=== PATIENT | female | born 1965 | race Caucasian/White ===

== ENCOUNTER 2020-05-18 12:59 | Inpatient (IN) | payer MEDICAID, SELFPAY ==
[~2020-05-18] VITALS: Ht 160 cm; Wt 68.5 kg
[2020-05-18 13:03] VITALS: BP 178/81
--- NOTE | 2020-05-18 13:03 | NUR ---
SHAMEKA Paredes takes pt to bedside for assessment.
[2020-05-18] MEDS ORDERED: NACL 0.9% 1,000 ML IV ONE ×2 (13:10→15:05)
--- NOTE | 2020-05-18 13:14 | NUR ---
55 y/o female A&OX4 c/o chest pain 10. Pt states high blood sugar reading obtained at home, subjective. Pt appears anxious. is at the bedside for complete assessment. PMH: DM RX: Unknown NKA
--- NOTE | 2020-05-18 13:20 | NUR ---
20G IV placed to left AC, blood drawn at this time.
--- NOTE | 2020-05-18 13:28 | NUR ---
XR at the pt bedside at this time.
[2020-05-18 13:42] LABS: BASOPHILS # (AUTO) 0.1 K/uL (0.00-0.22); BASOPHILS % (AUTO) 0.8 % (0.0-2.0); EOSINOPHILS # (AUTO) 0.1 K/uL (0-0.4); EOSINOPHILS % (AUTO) 1.4 % (0.0-4.0); HEMATOCRIT 45.7 % (36-48); HEMOGLOBIN 15.4 g/dL (12.0-16.0); LYMPHOCYTES # (AUTO) 1.5 K/uL (2.5-16.5); LYMPHOCYTES % (AUTO) 22.7 % (20.5-51.1); MEAN CORPUSCULAR HEMOGLOBIN 30 pg (27-31); MEAN CORPUSCULAR HGB CONC 34 g/dL (33-37); MEAN CORPUSCULAR VOLUME 89.4 fL (80-94); MONOCYTES # (AUTO) 0.6 K/uL (0.8-1.0); MONOCYTES % (AUTO) 9.8 % (1.7-9.3); NEUTROPHILS # (AUTO) 4.2 K/uL (1.8-7.7); NEUTROPHILS % (AUTO) 65.3 % (42.2-75.2); PLATELET COUNT (AUTO) 256 K/uL (140-450); RED BLOOD CELL COUNT(AUTO) 5.11 MIL/uL (4.20-5.40); RED CELL DISTRIBUTION WIDTH 13.7 % (11.6-13.7); WHITE BLOOD COUNT (AUTO) 6.4 K/uL (4.8-10.8)
[2020-05-18 13:49] LABS: ANION GAP 26.3 (8-16); CARBON DIOXIDE 15.3 mmol/L (21-32); CREATININE 0.8 mg/dL (0.6-1.3); POTASSIUM 3.6 mmol/L (3.5-5.1)
--- NOTE | 2020-05-18 14:31 | NUR ---
Pt sleeping, VSS, will continue to monitor.
--- NOTE | 2020-05-18 15:49 | NUR ---
Pt repositioned for comfort, NS bolus remains running. IV site intact. VSS. Will continue to monitor
[2020-05-18] MEDS ORDERED: LACTATED RINGERS 1,000 ML IV ONE (16:35)
[2020-05-18] MEDS ORDERED: ASPIRIN 81 MG TAB.CHEW PO ONE (16:35)
--- NOTE | 2020-05-18 16:44 | NUR ---
Lab at bedside for blood draw
[2020-05-18 16:48] LABS: ANION GAP 20.3 (8-16); CARBON DIOXIDE 18.8 mmol/L (21-32); CREATININE 0.7 mg/dL (0.6-1.3); POTASSIUM 4.1 mmol/L (3.5-5.1)
[2020-05-18 17:11] LABS: ANION GAP 19.7 (8-16); CARBON DIOXIDE 20.1 mmol/L (21-32); CREATININE 0.6 mg/dL (0.6-1.3); POTASSIUM 3.8 mmol/L (3.5-5.1)
--- NOTE | 2020-05-18 17:20 | NUR ---
Pt ambulated to bathroom for UA collection.
[2020-05-18] MEDS ORDERED: ENAL5TAB34 PO (17:24)
[2020-05-18] MEDS ORDERED: METF500T PO (17:24)
[2020-05-18] MEDS ORDERED: TURM500C7 PO (17:24)
[2020-05-18] MEDS ORDERED: GLIM2TAB PO (17:24)
--- NOTE | 2020-05-18 17:55 | NUR ---
Richelle swab collected and walked to lab.
--- NOTE | 2020-05-18 18:13 | NUR ---
Report given to SHAMEKA Saenz for admission orders to tele 106-B at extension [phone].
[2020-05-18] MEDS ORDERED: ONDANSETRON 4 MG/2 ML VIAL IM/IVP PRN (18:15)
[2020-05-18] MEDS ORDERED: MORPHINE SULFATE 2 MG/ML SYR IVP PRN (18:15)
[2020-05-18] MEDS ORDERED: ACETAMINOPHEN 325 MG TAB PO PRN (18:15)
[2020-05-18] MEDS ORDERED: HYDROcodone/APAP 5/325 MG 1 TAB TAB PO PRN (18:15)
[2020-05-18] MEDS ORDERED: DOCUSATE SODIUM 100 MG GELCAP PO PRN (18:15)
[2020-05-18] MEDS ORDERED: BLOOD GLUCOSE MONITORING 1 DEV DEV FS SCH (18:15)
[2020-05-18] MEDS ORDERED: DEXTROSE 50% 50 ML SYR IVP PRN (18:15)
[2020-05-18 18:25] LABS: APPEARANCE,URINE CLEAR (CLEAR); BILIRUBIN,URINE 1+ (NEGATIVE); BLOOD, URINE 1+ (NEGATIVE); COLOR,URINE YELLOW (YELLOW); LEUKOCYTE ESTERASE ,URINE NEGATIVE (NEGATIVE); NITRITE, URINE NEGATIVE (NEGATIVE); PH,URINE 5.5 (5.0-9.0); UGLUCOSE 1+ (NEGATIVE)
[2020-05-18] MEDS ORDERED: MAGNESIUM OXIDE 400 MG TAB PO SCH (18:30)
[2020-05-18 18:33] LABS: FINE GRANULAR CASTS,URINE 0-10 /LPF (None Seen); WBC,URINE 0-5 /HPF (0-5)
--- NOTE | 2020-05-18 18:43 | NUR ---
Patient will be admitted to care of SHAMEKA Grider. Admited to tele. Will go to room 106-B. Belongings list completed. Report to SHAMEKA Grider.
--- NOTE | 2020-05-18 18:45 | NUR ---
RECEIVED REPORT FROM ER NURSE CATY FOR CONTINUITY OF CARE. PATIENT AAOX4. ABLE TO MAKE NEEDS KNOWN. RESPIRATORY EVEN AND UNLABORED. SKIN WARM AND DRY. INTACT. IV SITE LEFT AC 20G. NO ACUTE DISTRESS NOTED AT THIS TIME. WILL CONTINUE TO MONITOR AND ENDORSE PATIENT TO SPRAY TECHNICIAN RN.
--- NOTE | 2020-05-18 19:02 | NUR ---
RECEIVED CALL FROM PHARMACIST TO CLARIFY THE HOURLY ACCUCHECK ORDER. REACHED TO DR. PINZON, HOURLY ACCUCHECK FOR NOW, WHEN BS TREND DOWN, CHECK BS Q2H. CALLED BACK PHARMACY. NO ONE ANSWERS, WILL ENDORSE TO STUDIO COUCH FRAME BUILDER RN.
--- NOTE | 2020-05-18 19:15 | NUR ---
ENDORSED PATIENT TO OIL TRUCK DRIVER RN FOR CONTINUITY OF CARE.
--- NOTE | 2020-05-18 19:16 | NUR ---
RECEIVED REPORT FROM DAY SHIFT NURSE. PT IN BED RESTING WITH HOB ELEVATED. PT AAOX4, AMBULATORY, AND ABLE TO MAKE NEEDS KNOWN. PT CALM AND COOPERATIVE TO CARE. RESPIRATIONS ARE EVEN AND UNLABORED TO ROOM AIR. ABDOMEN IS SOFT AND NON-TENDER. SKIN IS WARM, DRY, AND INTACT. PT DENIES ANY DIZZINESS OR DISCOMFORT AT THIS TIME. IV ACCESS ON LEFT AC G20 PATENT AND INTACT. PT KEPT COMFORTABLE. CALL LIGHT WITHIN REACH. WILL CONTINUE TO MONITOR.
[2020-05-18] MEDS: NACL 0.9% 1,000 ML IV SCH (20:06)
--- NOTE | 2020-05-18 20:07 | NUR ---
NEW ORDERS CARRIED OUT. IVF HUNG AND SCHEDULED MEDS GIVEN ORDERED. BLOOD SUGAR 167. INSULIN COVERAGE GIVEN ORDERED. WILL CONTINUE TO MONITOR.
[2020-05-18 20:55] LABS: ANION GAP 10.3 (8-16); CARBON DIOXIDE 23.6 mmol/L (21-32); CREATININE 0.7 mg/dL (0.6-1.3); POTASSIUM 3.9 mmol/L (3.5-5.1)
--- NOTE | 2020-05-18 21:00 | NUR ---
DR LUTZ CALLED AND REPORTED LATEST BLOOD SUGAR. SAID TO DO BLOOD SUGAR CHECKS ACHS INSTEAD AND TO GIVE 10UNITS LANTUS RIGHT NOW. ORDERS CARRIED OUT. WILL CONTINUE TO MONITOR.
[2020-05-18] MEDS ORDERED: INSULIN LANTUS 100 UNITS/ML 10 ML VIAL SUBQ SCH (21:05)
[2020-05-18] MEDS: BLOOD GLUCOSE MONITORING 1 DEV DEV FS SCH (21:38)
[2020-05-18] MEDS: INSULIN LISPRO SLIDING SCALE 100 UNITS/ML VIAL SUBQ PRN (21:44)
[2020-05-19] VITALS: BP 125/60
--- NOTE | 2020-05-19 00:08 | NUR ---
VITAL SIGNS STABLE. PT NOT IN DISTRESS. DENIES ANY DIZZINESS. NO REQUESTS MADE. SAFETY MEASURES IN PLACE. WILL CONTINUE TO MONITOR.
[2020-05-19 00:38] LABS: ANION GAP 14.8 (8-16); CARBON DIOXIDE 23.4 mmol/L (21-32); CREATININE 0.8 mg/dL (0.6-1.3); POTASSIUM 3.2 mmol/L (3.5-5.1)
--- NOTE | 2020-05-19 02:15 | NUR ---
PT ASLEEP. NO S/SX OF DISTRESS NOTED. VISIBLE CHEST RISE AND FALL NOTED. IVF INFUSING WELL. PT KEPT COMFORTABLE. SAFETY MEASURES IN PLACE. CALL LIGHT WITHIN REACH. WILL CONTINUE TO MONITOR.
[2020-05-19 04:00] VITALS: BP 133/59
--- NOTE | 2020-05-19 04:02 | NUR ---
VITAL SIGNS STABLE. PT IN BED RESTING. DENIES ANY PAIN OR DISCOMFORT. NEW IVF HUNG. IVF INFUSING WELL. CALL LIGHT WITHIN REACH. WILL CONTINUE TO MONITOR.
[2020-05-19] MEDS: NACL 0.9% 1,000 ML IV SCH ×2 (04:56→15:02)
[2020-05-19 05:56] LABS: BASOPHILS % (AUTO) 0.6 % (0.0-2.0); EOSINOPHILS # (AUTO) 0.1 K/uL (0-0.4); EOSINOPHILS % (AUTO) 1.5 % (0.0-4.0); HEMATOCRIT 39.1 % (36-48); LYMPHOCYTES # (AUTO) 2.1 K/uL (2.5-16.5); LYMPHOCYTES % (AUTO) 32.4 % (20.5-51.1); MEAN CORPUSCULAR HEMOGLOBIN 30 pg (27-31); MEAN CORPUSCULAR HGB CONC 33 g/dL (33-37); MEAN CORPUSCULAR VOLUME 89.9 fL (80-94); MONOCYTES # (AUTO) 0.7 K/uL (0.8-1.0); MONOCYTES % (AUTO) 10.3 % (1.7-9.3); NEUTROPHILS # (AUTO) 3.6 K/uL (1.8-7.7); NEUTROPHILS % (AUTO) 55.2 % (42.2-75.2); PLATELET COUNT (AUTO) 235 K/uL (140-450); RED BLOOD CELL COUNT(AUTO) 4.35 MIL/uL (4.20-5.40); RED CELL DISTRIBUTION WIDTH 13.6 % (11.6-13.7); WHITE BLOOD COUNT (AUTO) 6.6 K/uL (4.8-10.8)
[2020-05-19 05:57] LABS: ALBUMIN 2.8 g/dL (3.4-5.0); ANION GAP 17.3 (8-16); CARBON DIOXIDE 21.9 mmol/L (21-32); CREATININE 0.8 mg/dL (0.6-1.3); MAGNESIUM 1.5 mg/dL (1.8-2.4); POTASSIUM 3.2 mmol/L (3.5-5.1); TOTAL BILIRUBIN 0.7 mg/dL (0.0-1.0)
[2020-05-19] MEDS: BLOOD GLUCOSE MONITORING 1 DEV DEV FS SCH ×4 (06:38→20:19)
[2020-05-19] MEDS: INSULIN LISPRO SLIDING SCALE 100 UNITS/ML VIAL SUBQ PRN ×4 (06:39→20:19)
--- NOTE | 2020-05-19 07:18 | NUR ---
ENDORSED TO DAY SHIFT NURSE FOR CONTINUITY OF CARE.
--- NOTE | 2020-05-19 07:19 | NUR ---
RECEIVED ENDORSEMENT FROM REGULATORY ASSISTANT, AWAKE ,ALERT, ORIENTEDX4, BREATHING SPONTANEOUSLY AT ROOM AIR, NON LABORED. WITH ONGOING IV FLUID WITH 0.9% NS 100ML/HOUR INFUSING AT LEFT HAND G20 IV CANNULA NOTED. SAFETY MEASURES IN PLACE AND CONTINUE MONITOR.
[2020-05-19 08:00] VITALS: BP 110/68
--- NOTE | 2020-05-19 08:44 | NUR ---
POTASSIUM-3.2, MAGNESIUM-1.5, DR. LUTZ INFORMED THRU TEXT MESSAGE. AWAITING REPLY.
[2020-05-19] MEDS ORDERED: MAGNESIUM OXIDE 400 MG TAB PO PRN ×2 (08:45→08:59)
[2020-05-19] MEDS: ENALAPRIL 5 MG TAB PO SCH (08:54)
--- NOTE | 2020-05-19 08:58 | NUR ---
FULLY AWAKE AND ALERT, DUE MEDICATION GIVEN
[2020-05-19] MEDS: POTASSIUM CHLORIDE 10 MEQ TABER PO PRN (09:04)
[2020-05-19 09:26] LABS: ANION GAP 14.2 (8-16); CARBON DIOXIDE 24.5 mmol/L (21-32); CREATININE 0.6 mg/dL (0.6-1.3); POTASSIUM 3.7 mmol/L (3.5-5.1)
--- NOTE | 2020-05-19 11:36 | NUR ---
PATIENT HAS BEEN SCREENED AND CATEGORIZED MODERATE NUTRITION RISK. PATIENT WILL BE SEEN WITHIN 3-5 DAYS OF ADMISSION. 05/21/20 05/23/[address]
--- NOTE | 2020-05-19 11:59 | NUR ---
GLUCOSE-211, HUMALOG 4UNITS SUBQ PER SLIDING SCALE GIVEN
[2020-05-19 12:00] VITALS: BP 105/57
--- NOTE | 2020-05-19 13:56 | NUR ---
TO TOILET AMBULATORY,VOIDED FREELY CLAIMED.
[2020-05-19] MEDS ORDERED: METF500T PO (13:57)
--- NOTE | 2020-05-19 15:05 | NUR ---
ABOVE IV FLUID CONSUMED AND FOLLOWED UP BY SAME FLUID AT SAME RATE.
[2020-05-19 16:00] VITALS: BP 116/54
--- NOTE | 2020-05-19 16:48 | NUR ---
GLUCOSE- 248, HUMALOG 4UNITS SUBQ PER SLIDING GIVEN.
--- NOTE | 2020-05-19 18:11 | NUR ---
AMBULATORY AROUND THE ROOM, VISITED BY FAMILY AT WINDOW VIEWING.
--- NOTE | 2020-05-19 19:31 | NUR ---
ENDORSED TO HAND SURGEON IN STABLE CONDITION FOR CONTINUITY OF CARE
--- NOTE | 2020-05-19 19:33 | NUR ---
RECEIVED ENDORSEMENT FROM AM NURSE. PT IS RESTING IN BED COMFORTABLY. AAOX4. NO DISTRESS, NO SOB NOTED. RESPIRATIONS EVEN AND UNLABORED. DENIES PAIN/DISCOMFORT AT THIS TIME. NOTED IV ON LAC 20G RUNNING 100CC/HR. SAFETY MEASURES IN PLACED. CALL LIGHT IN REACH. WILL CONTINUE TO MONITOR.
[2020-05-19 20:00] VITALS: BP 128/56
[2020-05-19] MEDS: INSULIN LANTUS 100 UNITS/ML 10 ML VIAL SUBQ SCH (20:20)
--- NOTE | 2020-05-19 20:20 | NUR ---
DUE MEDS GIVEN. TOLERATED WELL. BLOOD GLUCOSE CHECKED-288 MG/DL, INSULIN 6 UNITS WAS ADMINISTERED PER ORDER. WILL CONTINUE TO MONITOR.
[2020-05-19] MEDS ORDERED: INSULIN LANTUS 100 UNITS/ML 10 ML VIAL SUBQ SCH (21:00)
--- NOTE | 2020-05-19 22:20 | NUR ---
PT IN BED SLEEPING COMFORTABLY WITHOUT ANY DISTRESS, NO SOB. SAFETY MEASURES IN PLACED. CALL LIGHT IN REACH. WILL CONTINUE TO MONITOR.
[2020-05-20] VITALS: BP 128/61
--- NOTE | 2020-05-20 00:20 | NUR ---
ROUNDS DONE, PT SLEEPING IN BED COMFORTABLY, IN NO ACUTE DISTRESS, NO SOB NOTED. SAFETY MEASURES IN PLACED. CALL LIGHT IN REACH. WILL CONTINUE TO MONITOR.
[2020-05-20] MEDS: NACL 0.9% 1,000 ML IV SCH ×3 (01:35→21:08)
--- NOTE | 2020-05-20 02:20 | NUR ---
PT NOTED TO BE REMOVING HIS O2 NASAL CANNULA, SATING <90% WITHOUT IT. RE-ORIENTED PT AND PLACED BACK ON O2 NC 2LPM, SATING 95%-98%. SITTER 1:1 ON BEDSIDE. WILL CONTINUE TO MONITOR. Addendum: 05/20/20 at 0416 by Harmony Moore RN ---ERROR--WRONG PT CHART---
--- NOTE | 2020-05-20 02:30 | NUR ---
FREQUENT ROUNDS DONE. PT NOTED SLEEPING ON BED COMFORTABLY. NO APPARENT DISTRESS, NO SOB NOTED. SAFETY MEASURES IN PLACED. CALL LIGHT IN REACH. WILL CONTINUE TO MONITOR.
[2020-05-20 04:00] VITALS: BP 126/63
--- NOTE | 2020-05-20 04:30 | NUR ---
PT IN BED REMAINS IN STABLE CONDITION. VS WITHIN NORMAL LIMITS. AFEBRILE. REQUESTED WATER AT BEDSIDE. SAFETY MEASURES IN PLACED. CALL LIGHT IN REACH. WILL CONTINUE TO MONITOR.
[2020-05-20 06:19] LABS: BASOPHILS % (AUTO) 0.7 % (0.0-2.0); EOSINOPHILS # (AUTO) 0.1 K/uL (0-0.4); EOSINOPHILS % (AUTO) 2.7 % (0.0-4.0); HEMATOCRIT 38.7 % (36-48); LYMPHOCYTES # (AUTO) 2.6 K/uL (2.5-16.5); LYMPHOCYTES % (AUTO) 47.5 % (20.5-51.1); MEAN CORPUSCULAR HEMOGLOBIN 30 pg (27-31); MEAN CORPUSCULAR HGB CONC 34 g/dL (33-37); MEAN CORPUSCULAR VOLUME 89.3 fL (80-94); MONOCYTES # (AUTO) 0.5 K/uL (0.8-1.0); MONOCYTES % (AUTO) 8.8 % (1.7-9.3); NEUTROPHILS # (AUTO) 2.2 K/uL (1.8-7.7); NEUTROPHILS % (AUTO) 40.3 % (42.2-75.2); PLATELET COUNT (AUTO) 222 K/uL (140-450); RED BLOOD CELL COUNT(AUTO) 4.33 MIL/uL (4.20-5.40); WHITE BLOOD COUNT (AUTO) 5.4 K/uL (4.8-10.8)
[2020-05-20] MEDS: BLOOD GLUCOSE MONITORING 1 DEV DEV FS SCH ×4 (06:20→21:00)
--- NOTE | 2020-05-20 06:20 | NUR ---
BS CHECKED-120 MG/DL , NO INSULIN COVERAGE NEEDED. WILL CONTINUE TO MONITOR.
[2020-05-20 07:09] LABS: ANION GAP 10.7 (8-16); CARBON DIOXIDE 26.4 mmol/L (21-32); CREATININE 0.5 mg/dL (0.6-1.3); POTASSIUM 3.1 mmol/L (3.5-5.1)
--- NOTE | 2020-05-20 07:10 | NUR ---
ENDORSED PT TO AM SHIFT NURSE, IN STABLE CONDITION, FOR CONTINUITY OF CARE.
--- NOTE | 2020-05-20 07:11 | NUR ---
RECEIVED ENDORSEMENT FROM ASSISTANT HEAD CASHIER, ASLEEP ON BED, BREATHING SPONTANEOUSLY AT ROOM AIR, NON LABORED. WITH ONGOING IV FLUID WITH 0.9% NS 100ML/HOUR INFUSING AT LEFT HAND G20 IV CANNULA NOTED. SAFETY MEASURES IN PLACE AND CONTINUE MONITOR.
[2020-05-20 07:24] LABS: MAGNESIUM 1.8 mg/dL (1.8-2.4); PHOSPHORUS 3.3 mg/dL (2.5-4.9)
[2020-05-20 08:00] VITALS: BP 139/69
[2020-05-20] MEDS: ENALAPRIL 5 MG TAB PO SCH (08:11)
[2020-05-20] MEDS: POTASSIUM CHLORIDE 10 MEQ TABER PO PRN (08:16)
--- NOTE | 2020-05-20 08:20 | NUR ---
FULLY AWAKE AND ALERT, DUE MEDICATION GIVEN. POTASSIUM LEVEL TODAY-3.1, REPLACEMENT 20 MEQ PO GIVEN.
[2020-05-20] MEDS ORDERED: POTASSIUM CHLORIDE 10 MEQ TABER PO SCH (09:23)
--- NOTE | 2020-05-20 09:42 | NUR ---
POTASSIUM REPLACEMENT VERIFIED WITH DR. LUTZ, MADE AWARE THAT PATIENT ALREADY RECEIVED 20MEQ TODAY, ACCORDING TO HIM GIVE ANOTHER 40MEQ ORDERED.
[2020-05-20] MEDS ORDERED: FLU VACCINE QS2020-21 0.5 ML SYR IMVAC SCH (10:07)
--- NOTE | 2020-05-20 10:31 | NUR ---
POTASSIUM 40MEQ TAB ORDERED GIVEN. PATIENT WASN'T ABLE TO RECEIVE FLU VACCINE. FLU VACCINE IM ADMINISTERED AT LEFT DELTOID ORDERED. HEALTH TEACHING RENDERED, VERBALIZED UNDERSTANDING.
[2020-05-20] MEDS: INSULIN LISPRO SLIDING SCALE 100 UNITS/ML VIAL SUBQ PRN ×3 (11:58→21:26)
[2020-05-20 12:00] VITALS: BP 108/68
[2020-05-20] MEDS: DOCUSATE SODIUM 100 MG GELCAP PO SCH ×2 (12:00→21:10)
--- NOTE | 2020-05-20 12:03 | NUR ---
GLUCOSE-291, HUMALOG 6 UNITS SUBQ PER SLIDING SCALE GIVEN, VITAL SIGNS TAKEN AND RECORDED. STABLE
--- NOTE | 2020-05-20 14:28 | NUR ---
AMBULATORY TO THE TOILET, VOIDED FREELY CLAIMED.
[2020-05-20 16:00] VITALS: BP 132/51
--- NOTE | 2020-05-20 16:08 | NUR ---
WATCHING TV, NO COMPLAINED MADE
--- NOTE | 2020-05-20 17:28 | NUR ---
GLUCOSE- 178, HUMALOG 2 UNITS SUBQ GIVEN PER SLIDING SCALE.
--- NOTE | 2020-05-20 18:11 | NUR ---
DINNER SERVED, ABLE TO FEED HERSELF.
--- NOTE | 2020-05-20 19:21 | NUR ---
ENDORSED TO INSIDE SALES PERSON IN STABLE CONDITION FOR CONTINUITY OF CARE.
--- NOTE | 2020-05-20 19:25 | NUR ---
RECEIVED REPORT AND CONTINUITY OF CARE FROM AM NURSE.
[2020-05-20 20:00] VITALS: BP 111/50
--- NOTE | 2020-05-20 21:06 | NUR ---
UPON PHYSICAL ASSESSMENT, PT IS A/OX4, HEAD IS ROUND, NORMOCEPHALIC, FACE IS UNIFORMED, SYMMETRICAL, ALIGNED EYEBROWS AND SMILE, PMMM, SCLERA WHITE, PERRL. TRACHEA IS PLACE IN THE MIDLINE OF THE NECK, NO JVD PRESENT. CHEST IS SYMMETRICAL, LUNGS ARE CTAX4, ON INSPIRATION AND EXPIRATION, BREATHING SPONTANEOUSLY ON ROOM AIR. S1, S2 HEART TONES NOTED. PT DENIED CHEST PAIN. BOWEL TONES ARE ACTIVE IN FOUR QUADRANTS. ABD IS FLAT AND NONTENDER. SKIN IS SMOOTH, WARM, DRY, 20G IV TO THE LEFT AC, PATENT, ASYMPTOMATIC, INTACT. NAILS ARE CLEAN, INTACT, CAP REFILL IS LESS THAN 3 SECONDS, NO CLUBBING OR CYANOSIS NOTED. EQUAL AND BILATERAL PEDAL PULSES NOTED. ORIENTED PT TO STAFF AND CALL LIGHT. SAFETY PRECAUTIONS IN PLACE. BED IN LOW POSITION. ADMINISTERED SCHEDULED MEDICATION, EDUCATION RENDERED. FSBS WAS 217, COVERED WITH INSULIN PER PROTOCOL. PT IS IN STABLE CONDITION.
[2020-05-20] MEDS: metFORMIN 500 MG TAB PO SCH (21:10)
[2020-05-20] MEDS: INSULIN LANTUS 100 UNITS/ML 10 ML VIAL SUBQ SCH (21:25)
--- NOTE | 2020-05-20 23:02 | NUR ---
PT IS SLEEPING.
[2020-05-21] VITALS: BP 119/60
--- NOTE | 2020-05-21 01:12 | NUR ---
PT IS SLEEPING. BREATHING SPONTANEOUSLY ON ROOM AIR.
--- NOTE | 2020-05-21 03:26 | NUR ---
PT IS SLEEPING. NO SIGNS OF DISTRESS NOTED.
[2020-05-21 04:00] VITALS: BP 111/66
--- NOTE | 2020-05-21 05:15 | NUR ---
LAB AT BEDSIDE TO DRAW BLOOD.
[2020-05-21 05:31] LABS: BASOPHILS % (AUTO) 0.7 % (0.0-2.0); EOSINOPHILS # (AUTO) 0.2 K/uL (0-0.4); EOSINOPHILS % (AUTO) 2.7 % (0.0-4.0); HEMATOCRIT 38.4 % (36-48); HEMOGLOBIN 12.8 g/dL (12.0-16.0); LYMPHOCYTES # (AUTO) 2.7 K/uL (2.5-16.5); LYMPHOCYTES % (AUTO) 41.2 % (20.5-51.1); MEAN CORPUSCULAR HEMOGLOBIN 30 pg (27-31); MEAN CORPUSCULAR HGB CONC 33 g/dL (33-37); MEAN CORPUSCULAR VOLUME 89.9 fL (80-94); MONOCYTES # (AUTO) 0.6 K/uL (0.8-1.0); MONOCYTES % (AUTO) 9.3 % (1.7-9.3); NEUTROPHILS % (AUTO) 46.1 % (42.2-75.2); PLATELET COUNT (AUTO) 232 K/uL (140-450); RED BLOOD CELL COUNT(AUTO) 4.28 MIL/uL (4.20-5.40); WHITE BLOOD COUNT (AUTO) 6.5 K/uL (4.8-10.8)
[2020-05-21 06:09] LABS: CARBON DIOXIDE 26.9 mmol/L (21-32); CREATININE 0.6 mg/dL (0.6-1.3); POTASSIUM 3.9 mmol/L (3.5-5.1)
[2020-05-21] MEDS: NACL 0.9% 1,000 ML IV SCH (06:37)
[2020-05-21] MEDS: BLOOD GLUCOSE MONITORING 1 DEV DEV FS SCH ×2 (06:37→11:30)
[2020-05-21] MEDS: INSULIN LISPRO SLIDING SCALE 100 UNITS/ML VIAL SUBQ PRN ×2 (06:38→11:48)
--- NOTE | 2020-05-21 08:00 | NUR ---
RECEIVED REPORT AT BEDSIDE. INITIAL ASSESSMENT INITIATED. PATIENT ALERT AWAKE ORIENTED X4, NOT IN ANY DISTRESS NOTED. WITH IVF ON GOING AND INFUSING WELL. ON MONITOR SHOWS SR HR-71, NO ECTOPY NOTED. DENIES PAIN AT THIS TIME. ATE BREAKFAST WITH GOOD APPETITE. NEEDS ATTENDED. WILL CONTINUE TO MONITOR.
[2020-05-21] MEDS: ENALAPRIL 5 MG TAB PO SCH (08:40)
[2020-05-21] MEDS: DOCUSATE SODIUM 100 MG GELCAP PO SCH (08:40)
[2020-05-21] MEDS: metFORMIN 500 MG TAB PO SCH (08:41)
[2020-05-21 09:20] VITALS: BP 136/64
--- NOTE | 2020-05-21 09:29 | NUR ---
DUES MEDS GIVEN AND TOLERATED WELL. RESTING IN BED. WILL CONTINUE TO MONITOR.
--- NOTE | 2020-05-21 11:49 | NUR ---
[facility] CALLED THAT PATIENT HAS BED AT [facility] [address] VIEIRA. REPORT TO [phone]. WILL NOTIFY [employer] CHEMIST. Addendum: 05/21/20 at 1154 by Vipul Bagley RN WRONG PATIENT
[2020-05-21 11:54] VITALS: BP 125/60
--- NOTE | 2020-05-21 12:45 | NUR ---
SEEN BY LAWN MOWER AND DIABETIC TEACHING GIVEN, DC PAPERS GIVEN ALSO AND DISCUSSED THE IMPORTANCE OF DIABETIC FOLLOW UP, VERBALIZED UNDERSTANDING.TELE MONITOR AND IV REMOVED.
--- NOTE | 2020-05-21 13:32 | NUR ---
DC PATIENT AMBULATORY, DC INSTRUCTION GIVEN AND VERBALIZED UNDERSTANDING. IN STABLE CONDITION.
--- NOTE | 2020-05-21 13:32 | NUR ---
SOCIAL WORK NOTE: Patient's Orientation Person Situation Place Time Comments SW MET WITH PATIENT AT BEDSIDE TO COMPLETE ASSESSMENT AND VERIFY DEMOGRAPHICS. Store Leader, Realtionship and Phone Number VANDANA JOHNSON DAUGHTER [phone] [facility] Power of Spray Foam Installer No Does Patient Have a POLST No Identifying Problems No Social Work Triggers Is A Social Work Consult Needed No Mandate Report Filed No Explanation Of Identifying Problems PATIENT IS A 55-YEAR-OLD FEMALE ADMITTED FOR HYPERGLYCEMIA. PATIENT HAS PMHX OF DIABETES. PATIENT REPORTED NO HISTORY OF SUBSTANCE ABUSE OR MENTAL HEALTH. PATIENT HAD QUESTIONS REGARDING HOSPITAL PRESUMPTIVE MEDI-[facility]. SW PROVIDED EDUCATION ON EMERGENCY MEDI[facility] AND REFERRED PATIENT TO [facility] WORKER. Admitted From Home Pre-Admission Level Of Functioning Status Independent/Ambulatory Prior Resources/Services Used In Last 12 Months No Prior Resources Used Prior DME No Prior DME Used Dialysis Comments N/A Living Situation Apartment Lives With Family Patient Had Caregiver No Home Support No Caregiver Issues Financial Issues No Known Financial Issue Referral To The Financial Counselor Needed No Factors/Needs No D/C Needs Identified Explanation And Or Other Factors Affecting/Possible DC Needs PATIENT STATED THAT HER DAUGHTER WILL COORDINATE TRANSPORTATION ONCE SHE IS DISCHARGED. [facility] REP WAS NOTIFIED REGARDING [facility] FOLLOW UP. Pt/Rep Participated In Discharge Plan Yes Patient/Family Agress With Discharge Plan Yes Discharge Plan Comments TENTATIVE DISCHARGE PLAN IS FOR PATIENT TO RETURN HOME. DC Plan Status Initiated
== END 2020-05-21 13:30 | disposition home or self-care (01) | DRG 420 ==
LOC: MED 12:59 → MTU 17:50
PROVIDERS: ADMIT Hospitalist; ATTEND Hospitalist
DX: E11.65 Type 2 diabetes mellitus with hyperglycemia (principal); E87.1 Hypo-osmolality and hyponatremia; E87.6 Hypokalemia; E83.42 Hypomagnesemia; Z20.828 Contact with and (suspected) exposure to other viral communicable diseases; R07.89 Other chest pain; E86.0 Dehydration; E87.2 Acidosis; I10 Essential (primary) hypertension; E43 Unspecified severe protein-calorie malnutrition; Z68.26 Body mass index [BMI] 26.0-26.9, adult; Z23 Encounter for immunization; Z79.899 Other long term (current) drug therapy; Z79.84 Long term (current) use of oral hypoglycemic drugs; Z83.3 Family history of diabetes mellitus; Z82.49 Family history of ischemic heart disease and other diseases of the circulatory system
CPT/HCPCS: 36415; 71045; 80048; 80053; 81001; 82009; 82803; 82948; 83036; 83735; 84100; 84484; 85025; 87081; 93005; 96360; 96361; 99285; J1644; J1815; J7030